=== PATIENT | female | born 1955 | race Caucasian/White ===

== ENCOUNTER 2020-09-11 07:30 | Outpatient (REF) | payer OTHER, SELFPAY ==
[2020-09-11 11:15] LABS: Hematocrit 39.5 % (37-47); Hemoglobin 12.6 g/dl (12.0-16.0); Mean Corpuscular HGB Conc 31.9 g/dl (31.0-35.0); Mean Corpuscular Hemoglobin 27.8 pg (27.0-33.0); Mean Corpuscular Volume 87.2 fL (80-98); Mean Platelet Volume 11.6 fL (9.4-12.3); Platelet Count 249 X10*3/uL (160-400); Red Blood Count 4.53 X10*6/uL (4.20-5.50); Red Cell Distribution Width 13.6 % (11.0-16.0); White Blood Count 5.7 X10*3/uL (4.8-10.8)
[2020-09-11 11:30] LABS: Alanine Aminotransferase 19 U/L (0-31); Albumin Level 4.2 g/dL (3.5-5.0); Alkaline Phosphatase 76 U/L (39-117); Anion Gap 10 (12-20); Aspartate Amino Transferase 22 U/L (5-31); Bilirubin Direct 0.3 mg/dL (0.0-0.5); Bilirubin Total 0.5 mg/dL (0.0-1.0); Blood Urea Nitrogen 17 mg/dL (9-16); Calcium 8.9 mg/dL (8.4-10.2); Carbon Dioxide 29 mmol/L (22-29); Chloride 107 mmol/L (96-108); Cholesterol 165 mg/dL; Estimated Glomerular Filt Rate > 60; Glucose Fasting 110 mg/dL (60-99); HDL Cholesterol 70 mg/dL; LDL Cholesterol Calculated 84 mg/dl; Potassium 4.7 mmol/L (3.3-5.1); Sodium 141 mmol/L (135-145); Total Protein 6.4 g/dL (6.5-8.0); Triglycerides 59 mg/dL
[2020-09-11 11:54] LABS: TSH reflex Free T4 2.92 uIU/mL (0.32-4.0)
== END 2020-09-11 07:31 | disposition home or self-care (01) ==
LOC: HO.WFDLDS 07:30
PROVIDERS: Visit Provider Hospitalist
DX: Z00.00 Encounter for general adult medical examination without abnormal findings (principal); Z13.220 Encounter for screening for lipoid disorders; Z13.29 Encounter for screening for other suspected endocrine disorder
CPT/HCPCS: 36415; 80048; 80061; 80076; 84443; 85027

== ENCOUNTER 2021-10-21 08:37 | Outpatient (REF) | payer OTHER, SELFPAY ==
[2021-10-21 11:37] LABS: Hematocrit 44.1 % (37.0-47.0); Hemoglobin 13.9 g/dl (12.0-16.0); Mean Corpuscular HGB Conc 31.5 g/dl (31.0-35.0); Mean Corpuscular Hemoglobin 28.1 pg (27.0-33.0); Mean Corpuscular Volume 89.1 fL (80.0-98.0); Mean Platelet Volume 11.6 fL (9.4-12.3); Platelet Count 267 X10*3/uL (160-400); Red Blood Count 4.95 X10*6/uL (4.20-5.50); Red Cell Distribution Width 13.2 % (11.0-16.0); White Blood Count 5.1 X10*3/uL (4.8-10.8)
[2021-10-21 11:54] LABS: Alanine Aminotransferase 22 U/L (0-31); Albumin Level 4.2 g/dL (3.5-5.0); Alkaline Phosphatase 66 U/L (39-117); Anion Gap 10 (12-20); Aspartate Amino Transferase 29 U/L (5-31); Blood Urea Nitrogen 18 mg/dL (9-16); Calcium 9.4 mg/dL (8.4-10.2); Carbon Dioxide 27 mmol/L (22-29); Chloride 108 mmol/L (96-108); Cholesterol 191 mg/dL; Estimated Glomerular Filt Rate > 60; Glucose Fasting 103 mg/dL (60-99); HDL Cholesterol 62 mg/dL; LDL Cholesterol Calculated 116 mg/dl; Potassium 4.2 mmol/L (3.3-5.1); Sodium 141 mmol/L (135-145); Total Protein 6.7 g/dL (6.5-8.0); Triglycerides 65 mg/dL
[2021-10-21 12:19] LABS: TSH reflex Free T4 4.59 uIU/mL (0.32-4.0)
[2021-10-21 13:17] LABS: Free T4 (Free Thyroxine) 1.14 ng/dL (0.71-1.85)
== END 2021-10-21 08:38 | disposition home or self-care (01) ==
LOC: HO.WFDLDS 08:37
PROVIDERS: Visit Provider Hospitalist
DX: Z00.00 Encounter for general adult medical examination without abnormal findings (principal)
CPT/HCPCS: 36415; 80053; 80061; 84439; 84443; 85027

== ENCOUNTER 2022-10-21 11:54 | Outpatient (REF) | payer OTHER, SELFPAY ==
--- NOTE | ~2022-10-21 | MM_ITS ---
EXAMINATION: MM SCREENING DIGITAL BREAST TOMOSYNTHESIS, BILATERAL CLINICAL INFORMATION: Due for yearly. Prior mammography 2018. At time of appointment, patient notes left nipple retraction for approximately 1 year. Exam performed as screening. Patient unable to stay for additional diagnostic evaluation. The lifetime risk of breast cancer based on the Tyrer-Cuzick Model is 9%. COMPARISON: Mammography: 08/18/2017, 10/14/2016, 03/03/2016, 02/25/2016. Ultrasound right breast 03/03/2016. TECHNIQUE: Digital breast tomosynthesis is performed in both the craniocaudal and mediolateral oblique views along with computer-aided detection (CAD). Synthesized 2D images are generated from the tomosynthesis. Case discussed with electrophysiology technologist. FINDINGS: There are scattered areas of fibroglandular density (ACR BI-RADS breast composition Category b). Parenchymal pattern is similar to prior exam. There is no interval mass or architectural abnormality or abnormal calcifications. There is no skin thickening or coarsening of the stromal markings. The axilla are unremarkable. The left nipple retraction noted in the clinical history is not appreciated. Patient will be recalled for additional evaluation. MM/MM tomosynthesis screening BI IMPRESSION: -No mammographic evidence of malignancy. ASSESSMENT: BI-RADS 0: Incomplete - Need Additional Imaging Evaluation RECOMMENDATION: 1. Additional views of the left breast (spot CC nipple in profile, ML nipple in profile). 2. Targeted ultrasound if warranted after review of the additional views. 3. Radiology department staff will contact the patient for additional imaging. This patient's information was entered into a reminder system with a target due date for their next mammogram.
== END 2022-10-21 11:55 | disposition home or self-care (01) ==
LOC: HO.MAMMO 11:54
PROVIDERS: PCP Hospitalist; Visit Provider Hospitalist
DX: Z12.31 Encounter for screening mammogram for malignant neoplasm of breast (principal)
CPT/HCPCS: 77063; 77067

== ENCOUNTER 2022-11-24 14:17 | Outpatient (REF) | payer SELFPAY ==
--- NOTE | ~2022-11-24 | MM_ITS ---
EXAMINATION: MM DIAGNOSTIC DIGITAL BREAST TOMOSYNTHESIS, LEFT CLINICAL INFORMATION: At time of screening appointment patient noted intermittent left nipple retraction for 1 year. No discharge or palpable mass. COMPARISON: Multiple prior exams including most recent 10/21/2022. TECHNIQUE: Digital breast tomosynthesis is performed. 2D images are generated from the tomosynthesis. The following views are obtained: Spot CC nipple in profile, spot ML nipple in profile. FINDINGS: There are scattered areas of fibroglandular density (ACR BI-RADS breast composition Category b). The additional views show normal skin contours with no nipple retraction, skin thickening, or architectural abnormality. No interval duct ectasia or mass or developing density. Clinical inspection shows no abnormality anterior left breast. Results are discussed with the patient at time of visit. MM/MM tomosynthesis added views L IMPRESSION: -No mammographic evidence of malignancy. -No significant changes from prior studies. ASSESSMENT: BI-RADS 1: Negative RECOMMENDATION: 1. Patient should be managed based on the clinical impression. If clinically indicated, further evaluation may be considered with surgical consult. Decision to proceed with biopsy should be based on clinical grounds and degree of clinical concern. 2. Otherwise, routine annual screening mammography. This patient's information was entered into a reminder system with a target due date for their next mammogram.
== END 2022-11-24 14:18 | disposition home or self-care (01) ==
LOC: HO.MAMMO 14:17
PROVIDERS: PCP Hospitalist; Visit Provider Hospitalist
DX: N64.53 Retraction of nipple (principal)
CPT/HCPCS: 77061; 77065

== ENCOUNTER 2023-03-15 08:44 | Day surgery (SDC) | payer MEDICARE, SELFPAY ==
--- NOTE | 2023-03-14 10:24 | HO.ANESPROP2 ---
Documented by User: Liyah Longo NP 03/14/23 10:25 HPI - Anesthesia Eval Consult details Narrative: 67yo F for Colonoscopy PMFSH Active Problems Active Problems: All Active Problems (Updated 10/20/22 @ 09:40 by Marie Mehta NP) Other screening mammogram (Acute) Screening for blood or protein in urine (Acute) BMI 31.0-31.9,adult (Acute) Callous (Acute) Normal physical exam (Acute) Pain in both feet (Acute) Well adult exam (Acute) High cholesterol (Acute) Hypothyroidism (acquired) (Acute) Past Medical History Medical History (Updated 03/14/23 @ 10:25 by Liyah Longo NP) High cholesterol Hypothyroidism (acquired) Family History Family History Father No problems noted. Mother No problems noted. Surgical History Surgical History History of rectal surgery Social History Social History Housing: House Alcohol intake: current Alcohol intake frequency: a few times a month Patient Tobacco Use Status: Former Tobacco user service: No Current occupational status: employed Current occupation: teacher Meds Allergies Allergy/AdvReac Type Severity Reaction Status Date / Time Penicillins Allergy Mild RASH Verified 03/15/23 09:27 Sulfa (Sulfonamide Allergy Mild RASH/SWELLI Verified 03/15/23 09:27 Antibiotics) NG PLASTIC TAPE Allergy Unknown UNKNOWN Uncoded 03/15/23 09:27 Exam Exam Date and Time: March 14, 2023 1024 Assessment and Plan Assessment Anesthesia Assessment: Chart Reviewed Documented by User: Ginger Aguirre MD 03/15/23 10:03 PMFSH Active Problems Active Problems: All Active Problems (Updated 03/15/23 @ 08:20) Other screening mammogram (Acute) Screening for blood or protein in urine (Acute) BMI 31.0-31.9,adult (Acute) Callous (Acute) Normal physical exam (Acute) Pain in both feet (Acute) Well adult exam (Acute) High cholesterol (Acute) Hypothyroidism (acquired) (Acute) Past Medical History Medical History (Updated 03/14/23 @ 10:25 by Liyah Longo NP) High cholesterol Hypothyroidism (acquired) Family History Family History Father No problems noted. Mother No problems noted. Family history of problems with anesthesia: No Surgical History Surgical History History of rectal surgery History of Problems with Anesthesia: No Social History Social History Housing: House Alcohol intake: current Alcohol intake frequency: a few times a month Patient Tobacco Use Status: Former Tobacco user service: No Current occupational status: employed Current occupation: teacher Meds Allergies Allergy/AdvReac Type Severity Reaction Status Date / Time Penicillins Allergy Mild RASH Verified 03/15/23 09:27 Sulfa (Sulfonamide Allergy Mild RASH/SWELLI Verified 03/15/23 09:27 Antibiotics) NG PLASTIC TAPE Allergy Unknown UNKNOWN Uncoded 03/15/23 09:27 Exam Height,Weight and Vital Signs: Height 5 ft 4 in Weight 72.575 kg Vital Signs Temp Pulse Resp BP Pulse Ox O2 Del Method 97.9 F 70 18 126/69 96 Room Air 03/15/23 09:25 03/15/23 09:25 03/15/23 09:25 03/15/23 09:25 03/15/23 09:25 03/15/23 09:25 Airway Mallampati Class: II TM Dist: >3cm Neck ROM: Full Loose/Missing/Broken Teeth: No (Denies broken, loose, missing teeth) Heart: RRR Lungs: CTAB Assessment and Plan Assessment Anesthesia Assessment: Anesthesia Plan Discussed Final Anesthetic Review Family History of Problems with Anesthesia: No History of Problems with Anesthesia: No NPO: Yes ASA Class: II Final Preanesthetic Review: No Changes in Pt Med Stat, Meds/Allgs Chart Reviewed, Consent Obtained/Reviewed and Anes Risks/Benef Reviewed Patient Risk: Low Procedure Risk: Low Assessment/Block/Sedation in SS: Assess/Block/Sedation-SS Anesthetic Plan Anesthetic Plan: MAC: Disposition: Standard PACU
--- NOTE | 2023-03-15 09:04 | P.HPSUR_ITS ---
Pre-Procedural Eval Section A Date of Service: 03/15/23 Section B Chief Complaint: colon cancer surveillance Details of Present Illness: crc in secodn degree relatives aged 90 Relevant Family History (Specify if Yes): Yes Relevant Social History: None Present Medications: see Short Stay Collaborative assessment Medical History: Significant History (High cholesterol Hypothyroidism (acquired), colon cancer ) History of Previous Operations: Relevant previous surgery/procedure and date(s) (rectal surgery ) Allergies: Allergies Allergy/AdvReac Type Severity Reaction Status Date / Time Penicillins Allergy Mild RASH Verified 10/20/22 09:08 Sulfa (Sulfonamide Allergy Mild RASH/SWELLI Verified 10/20/22 09:08 Antibiotics) NG PLASTIC TAPE Allergy Unknown UNKNOWN Uncoded 10/20/22 09:08 Review of Systems Sugical H&P ROS: Negative: Constitution, Cardiovascular, Respiratory, Neurological, Psychiatric, Hem-Onc, Allergic/Immunologic, Gastrointestinal, Genitourinary, Musculoskeletal, Integumentary, Endocrine and Eyes/Ears/Nose/Thr oat Exam Surgical H&P Exam: Normal: HEENT, Normal: Heart, Normal: Lungs, Normal: Extremities, Normal: Abdomen, Normal: Skin and Normal: Neurological Plan Diagnosis/Plan: Unchanged I have reviewed the history and physical and performed a pertinent physical examination on my patient. No changes have occurred unless specified. Time Spent With Patient Time: Total time managing care of this patient today ____ minutes.
[2023-03-15 09:05] VITALS: BMI 27.5
[2023-03-15 09:25] VITALS: BP 126/69; PULSE 70; RESP 18; TEMP 36.6; O2SAT 96
[2023-03-15] MEDS: Lactated Ringers 1,000 ML 100 ML IVCONT (09:26)
--- NOTE | 2023-03-15 09:28 | P.OP_ITS ---
Operative Note Operative Note Date of Service: 03/15/23 Narrative: Operative Information Procedure Description: Colonoscopy Indication: Hx of colon cancer, here for surveillance --hx of partial colon resection Anesthesia: MAC COLONOSCOPY Instrument: Olympus variable stiffness pediatric scope 190L Colonoscopy Monitoring: Vital signs and clinical assessment, continuous EKG monitoring, Pulse oximetry, Carbon Dioxide monitoring and blood pressure monitoring were done throughout the procedure. Colon withdrawal time was 8 minutes. Procedure: The patient was placed in the left lateral decubitis position and pre-procedure medications were administered. After a digital rectal examination of the ano-rectum, the video colonoscope was inserted into the rectum and advanced through the colon to the cecum/TI. The colonoscope was slowly withdrawn in a retrograde panoramic fashion and the colon mucosa was carefully examined including a retroflexed view of the rectum. Findings and interventions are described below. Procedure Difficulty: easy Findings: Terminal Ileum-normal Cecum:normal Ascending Colon: normal, few scars noted suspected from prior polyp resection Transverse Colon -normal Descending Colon:normal Sigmoid Colon: surgical anastomosis noted at 10 cm from anal verge Rectum: Retroflexion with small internal hemorrhoids, grade I Anorectum - normal Colon preparation: [place] Bowel Preparation Scale Right colon; 3 Transverse colon: 2 Left colon; 2 (0 = Unprepared colon segment with mucosa not seen due to solid stool that cannot be cleared. 1 = Portion of mucosa of the colon segment seen, but other areas of the colon segment not well seen due to staining, residual stool and/or opaque liquid. 2 = Minor amount of residual staining, small fragments of stool and/or opaque liquid, but mucosa of colon segment seen well. 3 = Entire mucosa of colon segment seen well with no residual staining, small fragments of stool or opaque liquid) Impression and Post Procedure Diagnosis: surgical changes internal hemorrhoids Plan: High fiber diet leaflet Avoid straining at stool, epsom salts and sitz bath, anusol supps or cream Repeat Colonoscopy in 5 years due to hx of colon cancer or earlier if clinically indicated Above findings were reviewed with the patient and relevant handouts were provided if indicated.
[2023-03-15 09:56] VITALS: BP 110/56; PULSE 80; RESP 18; TEMP 36.1; O2SAT 96
[2023-03-15 10:11] VITALS: BP 132/73; PULSE 66; RESP 15; TEMP 36.1; O2SAT 98
== END 2023-03-15 11:01 | disposition home or self-care (01) ==
PROVIDERS: PCP Family Medicine; Visit Provider Internal Medicine Gastroenterology
PROC: 0DJD8ZZ Inspection of Lower Intestinal Tract, Via Natural or Artificial Opening Endoscopic (ICD-10-PCS; CPT 45378; principal; 2023-03-15 10:20)
DX: Z12.11 Encounter for screening for malignant neoplasm of colon (principal); Z85.038 Personal history of other malignant neoplasm of large intestine; Z98.0 Intestinal bypass and anastomosis status; Z90.49 Acquired absence of other specified parts of digestive tract; K64.0 First degree hemorrhoids; E78.00 Pure hypercholesterolemia, unspecified; E03.9 Hypothyroidism, unspecified; Z79.899 Other long term (current) drug therapy; Z88.0 Allergy status to penicillin; Z88.2 Allergy status to sulfonamides; L23.1 Allergic contact dermatitis due to adhesives; Z87.891 Personal history of nicotine dependence
CPT/HCPCS: G0105

== ENCOUNTER → 2023-03-15 08:44 | Outpatient (BNV) | payer MEDICARE, SELFPAY | PROVIDERS: PCP Family Medicine; Visit Provider Internal Medicine Gastroenterology | DX: Z12.11 Encounter for screening for malignant neoplasm of colon (principal); Z80.0 Family history of malignant neoplasm of digestive organs; K64.0 First degree hemorrhoids | CPT/HCPCS: G0105 ==

== ENCOUNTER 2023-06-08 12:43 | Outpatient (AMB) | payer MEDICARE, SELFPAY ==
--- NOTE | 2023-06-08 12:55 | MHC.PC.OV ---
Vital Signs 06/08/23 12:56 Height 5 ft 4 in Weight 166 lb 8 oz BMI 28.6 BP 112/58 L Blood Pressure Location Lt brachial Position Sitting Respiration 13 Pulse 92 Pulse Source Pulse Oximeter Pulse Oximetry (%) 94 Oxygen Delivery Method Room Air Intake Visit Reasons: 8M fu htn and hypothyroidism/tx SV, see comment Allergies Penicillins Allergy (Mild, Verified 03/15/23 09:27) RASH Sulfa (Sulfonamide Antibiotics) Allergy (Mild, Verified 03/15/23 09:27) RASH/SWELLING PLASTIC TAPE Allergy (Unknown, Uncoded 03/15/23 09:27) UNKNOWN Tobacco use date assessed: 06/08/23 Fall risk assessment: No Falls in past year Last assessed Fall Risk: 06/08/23 Dental Screening Dental Screen Date: 06/08/23 Did you have a dental visit in the last 12 months?: Yes Did you have a dental problem in the last 6 months where you did not have access to dental care?: No Was dental information given to patient?: Patient has dentist HPI 8M fu htn and hypothyroidism/tx SV, see comment HPI Details Transfer of Care Prior PCP:?SV Last office visit/CPE:??October?2022 PMHx: Hypothyroidism, HLD. SurgHx: Partial colectomy. FHx: Mom: CAD & NM in her 60s. SocHx: Quit cigs in her 30s. EtOH Occassional 1-2 dr. NORRIS Medical History High cholesterol Hypothyroidism (acquired) Surgical History History of rectal surgery Family History Father No problems noted. Mother No problems noted. Social History (Updated 06/08/23 @ 13:03 by Mary Jo Morris CMA) Household Members: None Housing: House Alcohol intake: current Alcohol intake frequency: holidays/special occasions only Patient Tobacco Use Status: Former Tobacco user Cigarette Packs Per Day: 1 Cigarettes Per Day: 20 Years Smoked: 20 e-Cigarette/Vaping Use: Never Used Second Hand Smoke Exposure: No service: No Current occupational status: employed Current occupation: teacher Sexual orientation: Unable to collect Gender identity: Unable to collect Cognitive needs: No Hearing needs: Yes (hearing in left ear) Vision needs: Yes (wears glasses) Questionnaire PHQ-9 Over the last 2 weeks, how often have you been bothered by any of the following problems? 1. Little interest or pleasure in doing things: not at all 2. Feeling down, depressed, or hopeless: not at all 3. Trouble falling or staying asleep, or sleeping too much: not at all 4. Feeling tired or having little energy: not at all 5. Poor appetite or overeating: not at all 6. Feeling bad about yourself - or that you are a failure or have let yourself or your family down: not at all 7. Trouble concentrating on things, such as reading the newspaper or watching television: not at all 8. Moving or speaking so slowly that other people could have noticed. Or the opposite - being so fidgety or restless that you have been moving around a lot more than usual: not at all 9. Thoughts that you would be better off or of hurting yourself in some way: not at all Total score: 0 Depression Screening Interpretation: Negative Depression Screening Done: Yes [id number] - PHQ-9 Billing: Yes Source: Developed by Drs. Ashok Chen, Jennifer Haas, Khoi Juarez and colleagues, with an educational mia from [employer] Thrive Questionnaire Date Thrive assessed: 06/08/23 I am a: Patient What is your living situation today?: I have a steady place to live Within the past 12 months, did the food you bought not last and you didn't have the money to get more?: Never true Within the past 12 months, did you worry whether your food would run out before you got money to buy more?: Never true Do you have trouble paying for medicines?: No Do you have trouble getting transportation to medical appointments?: No Do you have trouble paying your heating and electricity bill?: No Do you have trouble taking care of your child, family member or friend?: No Do you have trouble with day-to-day activities such as bathing, preparing meals, shopping, managing finances, etc.?: No Are you currently unemployed and looking for a job?: No Are you interested in more education?: No Please select the resources that you would like help with: None Currently or been in a relationship where the following occur: no concerns reported AUDIT C Alcohol Use Questionnaire (AUDIT-C) 1. How often do you have a drink containing alcohol?: Monthly or less 2. How many drinks containing alcohol do you have on a typical day when you are drinking?: 1 or 2 3. How often do you have six or more drinks on one occasion?: Never Total Score: 1 BEBA-7 AMB Questionnaire BEBA-7 Date BEBA - 7 assessed: 06/08/23 Feeling nervous, anxious, or on edge: 0 = Not at all Not being able to stop or control worryin = Not at all Worrying too much about different things: 0 = Not at all Trouble relaxin = Not at all Being so restless that it is hard to sit still: 0 = Not at all Becoming easily annoyed or irritable: 0 = Not at all Feeling afraid as if something awful might happen: 0 = Not at all Total BEBA-7 score (0-4 normal; 5-9 mild; 10-14 moderate; 15-21 severe): 0 Source: Developed by Drs. Ashok Chen, Jennifer Haas, Khoi Juarez and colleagues, with an educational mia from [employer] BEBA-7 Assessment Billing BEBA-7 Assessment Tool: BEBA-7 Assessment 97007 Review of Systems Const Denies chills, Denies fatigue, Denies fever(s), Denies headache(s) and Denies weakness ENT Denies dizziness and Denies headache(s) Card Denies chest pain, Denies lightheadedness, Denies dyspnea and Denies other (Palpitations) Resp Denies cough, Denies dyspnea, Denies wheezing and Denies other ( shortness of breath) Musc Denies numbness and Denies tingling Neuro Denies dizziness, Denies headache(s), Denies numbness, Denies tingling, Denies paresthesias and Denies weakness Psych Denies anxiety and Denies depression Endo Denies fatigue Aller/Immun Denies wheezing Physical exam (Primary Care) Vital Signs: Last Vital Signs Pulse 92 06/08/23 12:56 Resp 13 06/08/23 12:56 BP 112/58 L 06/08/23 12:56 Pulse Ox 94 06/08/23 12:56 Oxygen Delivery Method Room Air 06/08/23 12:56 BMI result Body Mass Index 28.6 Tobacco/Smoking Status: Tobacco use Status Tobacco use date assessed 06/08/23 06/08/23 13:02 Patient Tobacco Use Status Former Tobacco user 06/08/23 13:03 e-Cigarette/Vaping Use Never Used 06/08/23 13:03 PHQ-9: PHQ-9 Score PHQ-9: Total score 0 06/08/23 13:19 Depression Screening Interpretation: Negative Thrive Assessment: Date of Thrive Assessment Date Thrive assessed 06/08/23 06/08/23 13:07 Currently or been in a relationship where the following occur: no concerns reported Const General: no acute distress and well developed Nutritional Appearance: well nourished Orientation/consciousness: patient oriented x3 HENMT Head: Yes normocephalic and Yes atraumatic Eyes General: appearance normal, both eyes and all related structures Pupils: Equal, round and reactive pupils present EOM: EOMs intact bilaterally Resp Effort & Inspection: normal respiratory effort Auscultation: clear to auscultation bilaterally Cardio Rate: regular rate Rhythm: regular rhythm Heart sounds: S1 normal heart sound present, S2 normal heart sound present, no gallops, no murmurs and no rubs Neuro General: patient oriented x3 and gait normal Cranial nerves: Yes Equal, round and reactive pupils present Psych Affect: normal affect Assessment and Plan Assessment & Plan (1) Hypothyroidism (acquired): Code(s): E03.9 - Hypothyroidism, unspecified Plan: Taking?levothyroxine?as?prescribed Due?to?recheck?thyroid?hormone?levels-ordered (2) High cholesterol: Code(s): E78.00 - Pure hypercholesterolemia, unspecified Plan: Taking?pravastatin?as?prescribed Check?lipid (3) History of colorectal cancer: Code(s): Z85.048 - Personal history of other malignant neoplasm of rectum, rectosigmoid junction, and anus Plan: Followed?by?[facility]?gastroenterology Will?request?results?of?recent?colonoscopy (4) Left ankle swelling: Code(s): M25.472 - Effusion, left ankle Plan: Mild?venous?insufficiency Elevate?legs Avoid?salt/sodium Use?compression?stocking (5) Venous insufficiency: Code(s): I87.2 - Venous insufficiency (chronic) (peripheral) Plan: As?above Orders: Orders Free T4 (Free Thyroxine) Today E03.9 - Hypothyroidism, unspecified Triiodothyronine T3 Total Today E03.9 - Hypothyroidism, unspecified Comprehensive [place]. Panel Fast Today E78.00 - Pure hypercholesterolemia, unspecified, Z00.00 - Encounter for general adult medical examination without abnormal findings Lipid Panel Today E78.00 - Pure hypercholesterolemia, unspecified, Z00.00 - Encounter for general adult medical examination without abnormal findings Microalbumin, Random (w Creat) Today E78.00 - Pure hypercholesterolemia, unspecified, I10 - Essential (primary) hypertension UA and rflx microscopic Today E03.9 - Hypothyroidism, unspecified, Z00.00 - Encounter for general adult medical examination without abnormal findings Thyroid Stimulating Hormone Today E03.9 - Hypothyroidism, unspecified Coding Level of Care Code Est Pt Level 4 (86349) Diagnoses Hypothyroidism (acquired) E03.9 High cholesterol E78.00 History of colorectal cancer Z85.048 Left ankle swelling M25.472 Venous insufficiency I87.2 Additional Codes BEBA-7 Assessment Billing - BEBA-7 Assessment Tool: BEBA-7 Assessment 93901 ([id number])
[2023-06-08 12:56] VITALS: BP 112/58; PULSE 92; RESP 13; O2SAT 94; BMI 28.6
== END 2023-06-08 13:38 | disposition home or self-care (01) ==
PROVIDERS: PCP Family Medicine; Visit Provider Family Medicine
DX: E03.9 Hypothyroidism, unspecified (principal); E78.00 Pure hypercholesterolemia, unspecified; Z85.048 Personal history of other malignant neoplasm of rectum, rectosigmoid junction, and anus; M25.472 Effusion, left ankle; I87.2 Venous insufficiency (chronic) (peripheral)
CPT/HCPCS: 99214

== ENCOUNTER 2023-10-17 08:00 | Outpatient (REF) | payer MEDICARE, SELFPAY ==
[2023-10-17 11:59] LABS: Appearance Urine Clear; Color Urine Yellow; Glucose Urine UA Negative (Negative); Leukocyte Esterase Urine Small (1+) (Negative); Nitrite Urine Negative (Negative); PH 5.5 (5.0-9.0); Specific Gravity - Urine 1.015 (1.005-1.025); UMIC TRIGGER UA YES; Urine Blood Negative (Negative); Urine Ketones Negative (Negative); Urine Protein Negative (Neg-Trace)
[2023-10-17 12:30] LABS: Bacteria Urine None Seen (None Seen); Hyaline Casts Urine 0-2 /LPF (0-2); RBC Urine 0-2 /HPF (0-2); Squamous Epithelial Cell Urine 0-2 /HPF (0-2); WBC Urine 0-5 /HPF (0-5)
[2023-10-17 13:52] LABS: Creatinine Urine 116.76 mg/dL; Microalbum/Creatinine Ratio Ur 24.8 ug/mg cr (<30)
[2023-10-17 17:42] LABS: Alanine Aminotransferase 23 U/L (0-31); Albumin Level 4.3 g/dL (3.5-5.0); Alkaline Phosphatase 61 U/L (39-117); Anion Gap 12 (12-20); Aspartate Amino Transferase 25 U/L (5-31); Bilirubin Total 0.8 mg/dL (0.0-1.0); Blood Urea Nitrogen 19 mg/dL (9-16); Calcium 9.1 mg/dL (8.4-10.2); Carbon Dioxide 27 mmol/L (22-29); Chloride 107 mmol/L (96-108); Cholesterol 185 mg/dL (<200); Estimated Glomerular Filt Rate > 60; Free T4 (Free Thyroxine) 1.15 ng/dL (0.71-1.85); Glucose Fasting 88 mg/dL (60-99); HDL Cholesterol 67 mg/dL (>40); LDL Cholesterol Calculated 104 mg/dL (<100); Potassium 3.9 mmol/L (3.3-5.1); Sodium 142 mmol/L (135-145); Thyroid Stimulating Hormone 4.52 uIU/mL (0.32-4.0); Total Protein 6.9 g/dL (6.5-8.0); Triglycerides 71 mg/dL (<150)
[2023-10-18 06:48] LABS: Triiodothyronine T3 Total 78 ng/dL (76-181)
== END 2023-10-17 08:01 | disposition home or self-care (01) ==
LOC: HO.WFDLDS 08:00
PROVIDERS: Visit Provider Family Medicine
DX: Z00.00 Encounter for general adult medical examination without abnormal findings (principal); E03.9 Hypothyroidism, unspecified; E78.00 Pure hypercholesterolemia, unspecified; I10 Essential (primary) hypertension
CPT/HCPCS: 36415; 80053; 80061; 81001; 81003; 82043; 82570; 84439; 84443; 84480

== ENCOUNTER 2023-10-24 15:44 | Outpatient (AMB) | payer MEDICARE, SELFPAY ==
[2023-10-24 15:58] VITALS: BP 120/72; PULSE 70; O2SAT 98; BMI 28.5
--- NOTE | 2023-10-24 15:58 | A.OFFPC_ITS ---
Vital Signs 10/24/23 15:58 Height 5 ft 4 in Weight 166 lb 2 oz BMI 28.5 BP 120/72 Blood Pressure Location Lt brachial Position Sitting Pulse 70 Pulse Source Pulse Oximeter Pulse Oximetry (%) 98 Oxygen Delivery Method Room Air Intake Visit Reasons: Extended exam with f/u labs and health maintenance Intake Note: Patient is here for her extended exam today with follow up on labs. Allergies Penicillins Allergy (Mild, Verified 10/24/23 16:00) RASH Sulfa (Sulfonamide Antibiotics) Allergy (Mild, Verified 10/24/23 16:00) RASH/SWELLING PLASTIC TAPE Allergy (Unknown, Uncoded 10/24/23 16:00) UNKNOWN Medication List - Last Reconciled 10/24/23 by Tk Tatum MD levothyroxine 50 mcg PO DAILY pravastatin 20 mg PO BEDTIME Tobacco use date assessed: 10/24/23 Fall risk assessment: No Falls in past year Last assessed Fall Risk: 10/24/23 Dental Screening Dental Screen Date: 10/24/23 Did you have a dental visit in the last 12 months?: Yes Did you have a dental problem in the last 6 months where you did not have access to dental care?: No Was dental information given to patient?: Patient has dentist HPI Extended exam with f/u labs and health maintenance HPI Details 67 y/o female presents for an extended e xam with f/u labs and health maintenance. Labs were drawn 10/17/23. Reviewed labs with pt. Triglycerides 71. TC 185. LDL 104. HDL 67. She is on pravastatin 20mg. Ongoing elevated TSH at 4.52. She is on levothyroxine 50 mcg daily. Fasting blood sugar 88 - had been elevated before in the past. [facility] Medical History (Updated 10/24/23 @ 16:41 by Hima Rsoario) High cholesterol Hypothyroidism (acquired) Surgical History History of rectal surgery Family History Father No problems noted. Mother No problems noted. Social History (Updated 06/08/23 @ 13:03 by Mary Jo Morris CMA) Household Members: None Housing: House Alcohol intake: current Alcohol intake frequency: holidays/special occasions only Patient Tobacco Use Status: Former Tobacco user Cigarette Packs Per Day: 1 Cigarettes Per Day: 20 Years Smoked: 20 e-Cigarette/Vaping Use: Never Used Second Hand Smoke Exposure: No service: No Current occupational status: employed Current occupation: teacher Sexual orientation: Unable to collect Gender identity: Unable to collect Cognitive needs: No Hearing needs: Yes (hearing in left ear) Vision needs: Yes (wears glasses) Questionnaire PHQ-9 Over the last 2 weeks, how often have you been bothered by any of the following problems? 1. Little interest or pleasure in doing things: not at all 2. Feeling down, depressed, or hopeless: not at all 3. Trouble falling or staying asleep, or sleeping too much: not at all 4. Feeling tired or having little energy: not at all 5. Poor appetite or overeating: not at all 6. Feeling bad about yourself - or that you are a failure or have let yourself or your family down: not at all 7. Trouble concentrating on things, such as reading the newspaper or watching television: not at all 8. Moving or speaking so slowly that other people could have noticed. Or the opposite - being so fidgety or restless that you have been moving around a lot more than usual: not at all 9. Thoughts that you would be better off or of hurting yourself in some way: not at all Total score: 0 Depression Screening Interpretation: Negative Depression Screening Done: Yes 71546 - PHQ-9 Billing: Yes Source: Developed by Drs. Ashok Chen, eJnnifer Haas, Khoi Juarez and colleagues, with an educational mia from [employer]. Thrive Questionnaire Date Thrive assessed: 10/24/23 I am a: Patient What is your living situation today?: I have a steady place to live Within the past 12 months, did the food you bought not last and you didn't have the money to get more?: Never true Within the past 12 months, did you worry whether your food would run out before you got money to buy more?: Never true Do you have trouble paying for medicines?: No Do you have trouble getting transportation to medical appointments?: No Do you have trouble paying your heating and electricity bill?: No Do you have trouble taking care of your child, family member or friend?: No Do you have trouble with day-to-day activities such as bathing, preparing meals, shopping, managing finances, etc.?: No Are you currently unemployed and looking for a job?: No Are you interested in more education?: No THRIVE Score: 0 AUDIT C Alcohol Use Questionnaire (AUDIT-C) 1. How often do you have a drink containing alcohol?: Monthly or less 2. How many drinks containing alcohol do you have on a typical day when you are drinking?: 1 or 2 3. How often do you have six or more drinks on one occasion?: Never Total Score: 1 BEBA-7 AMB Questionnaire BEBA-7 Date BEBA - 7 assessed: 10/24/23 Feeling nervous, anxious, or on edge: 0 = Not at all Not being able to stop or control worryin = Not at all Worrying too much about different things: 0 = Not at all Trouble relaxin = Not at all Being so restless that it is hard to sit still: 0 = Not at all Becoming easily annoyed or irritable: 0 = Not at all Feeling afraid as if something awful might happen: 0 = Not at all Total BEBA-7 score (0-4 normal; 5-9 mild; 10-14 moderate; 15-21 severe): 0 Source: Developed by Drs. Ashok Chen, Jennifer Haas, Khoi Juarez and colleagues, with an educational mia from [employer]. BEBA-7 Assessment Billing BEBA-7 Assessment Tool: BEBA-7 Assessment 99511 Review of Systems Const Denies chills, Denies fatigue, Denies fever(s), Denies headache(s) and Denies weakness Eyes Denies change in vision ENT Denies dizziness, Denies headache(s), Denies hearing loss, Denies nasal congestion, Denies sinus pain, Denies sinus pressure and Denies sore throat Card Denies chest pain, Denies lightheadedness, Denies dyspnea and Denies other (palpitations) Resp Denies cough, Denies dyspnea and Denies wheezing GI Denies abdominal pain, Denies melena, Denies hematochezia, Denies change in bowel habits, Denies dyspepsia and Denies nausea Denies hematuria and Denies dysuria Musc Denies abnormal gait, Denies myalgias, Denies arthralgias, Denies numbness and Denies tingling Skin/Breast Denies rash, Denies unusual bruising and Denies wounds Neuro Denies abnormal gait, Denies dizziness, Denies headache(s), Denies memory loss, Denies numbness, Denies Sensory deficit (Neuro), Denies tingling and Denies weakness Psych Denies anxiety, Denies depression and Denies memory loss Endo Denies cold intolerance, Denies fatigue, Denies heat intolerance, Denies polydipsia and Denies polyuria Bandar/Lymph Denies easy bleeding and Denies easy bruising Aller/Immun Denies wheezing Physical exam (Primary Care) Vital Signs: Last Vital Signs Pulse 70 10/24/23 15:58 BP 120/72 10/24/23 15:58 Pulse Ox 98 10/24/23 15:58 Oxygen Delivery Method Room Air 10/24/23 15:58 BMI result Body Mass Index 28.5 Tobacco/Smoking Status: Tobacco use Status Tobacco use date assessed 10/24/23 10/24/23 16:04 Patient Tobacco Use Status Former Tobacco user 10/24/23 16:04 e-Cigarette/Vaping Use Never Used 10/24/23 16:04 PHQ-9: PHQ-9 Score PHQ-9: Total score 0 10/24/23 16:19 Depression Screening Interpretation: Negative Thrive Assessment: Date of Thrive Assessment Date Thrive assessed 10/24/23 10/24/23 16:06 Const General: no acute distress, well developed, alert and awake Nutritional Appearance: well nourished Orientation/consciousness: patient oriented x3 HENMT Head: Yes normocephalic and Yes atraumatic Ears: hearing grossly normal bilaterally and TM's normal bilaterally General nose exam: Normal external nose present and Normal nares present Mouth: Normal oral and palatal mucosa present and moist mucous membranes Teeth and gingiva: dentition normal Throat: Yes posterior oropharynx normal Eyes General: appearance normal, both eyes and all related structures Pupils: Equal, round and reactive pupils present and Pupil accommodation reflex normal EOM: EOMs intact bilaterally Neck Neck: Yes normal visual inspection, Yes no lymphadenopathy and Yes trachea midline Thyroid: Thyroid normal Carotids: no bruits Lymphatic: no lymphadenopathy noted Chest Chest palpation & inspection: normal inspection of the chest Resp Effort & Inspection: normal respiratory effort Auscultation: clear to auscultation bilaterally Cardio Rate: regular rate Rhythm: regular rhythm Heart sounds: S1 normal heart sound present, S2 normal heart sound present, no gallops, no murmurs and no rubs Bruits: no abdominal aortic bruits and no carotid bruits GI Palpation (GI): No Abdominal aortic bruit present, Soft to palpation, nontender, No hepatosplenomegaly present and No Rebound tenderness present Auscultation: normal bowel sounds General: Yes no CVA tenderness Back/Spine/Pelvis Back: no CVA tenderness Cervical Spine: cervical ROM normal and No Cervical spine tenderness Thoracic/Lumbar Spine: thoraco-lumbar ROM normal, No pain with thoraco-lumbar ROM, No thoracic spinal tenderness and No lumbar spinal tenderness Skin Lesions: no lesions Rashes: no rashes Trauma: no lacerations or abrasions Wounds: no wounds Nails: normal Neuro General: patient oriented x3 Cranial nerves: Yes Equal, round and reactive pupils present Cognition (Neuro): normal cognition Gait exam (Neuro): Normal gait present Motor exam (neuro): 5/5 motor strength present throughout Sensory Exam: No Sensory deficit (Neuro) Deep tendon reflexes (DTR's): Right patellar reflex intensity grade: 2+ and Left patellar reflex intensity grade: 2+ Extrem General: Yes normal to inspection and No edema Psych Appearance: grossly normal Affect: normal affect Attitude: cooperative Thought process: Normal thought process present Assessment and Plan Assessment & Plan (1) Hypothyroidism (acquired): Code(s): E03.9 - Hypothyroidism, unspecified Plan: TSH?elevated?on?levothyroxine?50?mcg?daily Will?increase?levothyroxine?to?75?mcg?daily?and?recheck?in?6-8?weeks. (2) High cholesterol: Code(s): E78.00 - Pure hypercholesterolemia, unspecified Plan: Cholesterol?levels?appear?well?controlled?on?pravastatin?20?mg?daily Continue?current?medication?regimen (3) Breast cancer screening by mammogram: Code(s): Z12.31 - Encounter for screening mammogram for malignant neoplasm of breast Plan: Patient?has?mammogram?scheduled?for?early?May Up-to-date (4) Screening for colon cancer: Code(s): Z12.11 - Encounter for screening for malignant neoplasm of colon Plan: Last?colonoscopy?was?in?March?2022?and?recommended?a?5?year?follow-up She?will?follow-up?in?March?2027 (5) Screening for osteoporosis: Code(s): Z13.820 - Encounter for screening for osteoporosis Plan: Bone?density?ordered (6) Normal physical exam: Code(s): Z00.00 - Encounter for general adult medical examination without abnormal findings Plan: 67-year-old?female?presents?for extended?exam Encouraged?a?healthy?diet?with?active?lifestyle?and?plenty?of?exercise Plan Patient?declines?Pap?smears?as?she?is?67 Orders: Orders Free T4 (Free Thyroxine) Today E03.9 - Hypothyroidism, unspecified Comprehensive Met. Panel Today E03.9 - Hypothyroidism, unspecified XR DEXA axial skeleton Today E03.9 - Hypothyroidism, unspecified, M81.0 - Age- related osteoporosis without current pathological fracture Thyroid Stimulating Hormone Today E03.9 - Hypothyroidism, unspecified Triiodothyronine T3 Total Today E03.9 - Hypothyroidism, unspecified Medications: Changed From levothyroxine 50 mcg PO DAILY 90 tabs 1RF To levothyroxine 75 mcg PO DAILY 90 days 90 tabs 2RF Coding Level of Care Code Est Pt Level 4 (41927) Diagnoses Hypothyroidism (acquired) E03.9 High cholesterol E78.00 Breast cancer screening by mammogram Z12.31 Screening for colon cancer Z12.11 Screening for osteoporosis Z13.820 Normal physical exam Z00.00 Additional Codes BEBA-7 Assessment Billing - BEAB-7 Assessment Tool: BEBA-7 Assessment [id number] ([id number])
== END 2023-10-24 16:38 | disposition home or self-care (01) ==
PROVIDERS: PCP Family Medicine; Visit Provider Family Medicine
DX: E03.9 Hypothyroidism, unspecified (principal); E78.00 Pure hypercholesterolemia, unspecified; Z12.31 Encounter for screening mammogram for malignant neoplasm of breast; Z12.11 Encounter for screening for malignant neoplasm of colon; Z13.820 Encounter for screening for osteoporosis; Z00.00 Encounter for general adult medical examination without abnormal findings
CPT/HCPCS: 99214

== ENCOUNTER → 2023-11-17 14:00 | Outpatient (BNV) | payer MEDICARE, SELFPAY | PROVIDERS: PCP Family Medicine; Visit Provider Radiology Diagnostic Radiology | DX: Z12.31 Encounter for screening mammogram for malignant neoplasm of breast (principal) | CPT/HCPCS: 77063; 77067 ==

== ENCOUNTER 2023-11-17 14:09 | Outpatient (REF) | payer MEDICARE, SELFPAY ==
--- NOTE | ~2023-11-17 | MM_ITS ---
EXAMINATION: BONE DENSITOMETRY CLINICAL INDICATION: Age-related osteoporosis without current pathological fracture. COMPARISON: Baseline BD dated 11/20/2008. TECHNIQUE: Using a [employer] DXA System (software version: 13.1) manufactured by [employer], dual-energy x-ray absorptiometry was performed of the lumbar spine and left hip. The images are of good technical quality. Summary results are attached. FINDINGS: LEFT FEMUR, NECK: Current: BMD 0.848 g/cm2, Z-score 0.0, T-score -1.4, osteopenia. Baseline: BMD 0.878 g/cm2. LEFT FEMUR, TOTAL: Current: BMD 0.773 g/cm2, Z-score -0.8, T-score -1.9, osteopenia, 12.4% decrease from baseline (<5% change is not significant). Baseline: BMD 0.882 g/cm2. AP SPINE L1-L4: Current: BMD 0.888 g/cm2, Z-score -1.1, T-score -2.4, osteopenia, 14.8% decrease from baseline (<5% change is not significant). Baseline: BMD 1.042 g/cm2. IDENTIFIED RISK FACTORS: Family history (parent hip fracture), history of fracture (adult), menopause, secondary osteoporosis (Intestinal or bowel disease). HISTORY OF FRACTURE: Other. MEDICATIONS: Calcium, multivitamin, vitamin D. MM/XR DEXA axial skeleton IMPRESSION: 1. DIAGNOSIS: Osteopenia based on the lowest T-score value of -2.4 in the lumbar spine applying World Health Organization criteria. 2. 10-YEAR FRACTURE RISK PREDICTION, FRAX: Major osteoporotic fracture (clinical spine, forearm, hip or shoulder) 25.8%. Hip fracture 1.7%. 3. Treatment Recommendations: NOF guidelines recommend consideration for treatment in postmenopausal women and men age 50 and older presenting with the following: -A hip or vertebral (clinical or morphometric) fracture. -T-score less than or equal to -2.5 at the femoral neck or spine after appropriate evaluation to exclude secondary causes. -Low bone mass at the hip or spine and a 10-year fracture probability by FRAX of greater than or equal to 3% for hip fracture or greater than or equal to 20% for major osteoporotic fracture based on the [place] adapted WHO algorithm. 4. Other Recommendations: All treatment decisions require clinical judgment and consideration of individual patient factors, including patient preferences, comorbidities, previous drug use, risk factors not captured in the FRAX model (e.g. frailty, falls, vitamin D deficiency, increased bone turnover, interval significant decline in bone density) and possible under or overestimation of fracture risk by FRAX. Additional medical evaluation for secondary cause of low bone mineral density may be appropriate. FUTURE SCAN RECOMMENDATION: People with diagnosed cases of osteoporosis or at high risk for fracture should have regular bone mineral density tests. For patients eligible for Medicare, routine testing is allowed once every 2 years. The testing frequency can be increased to one year for patients who have rapidly progressing disease, those who are receiving or discontinuing medical therapy to restore bone mass, or have additional risk factors.
== END 2023-11-17 14:10 | disposition home or self-care (01) ==
LOC: HO.MAMMO 14:09
PROVIDERS: PCP Family Medicine; Visit Provider Family Medicine
DX: Z12.31 Encounter for screening mammogram for malignant neoplasm of breast (principal); Z13.820 Encounter for screening for osteoporosis; Z78.0 Asymptomatic menopausal state; M81.0 Age-related osteoporosis without current pathological fracture
CPT/HCPCS: 77063; 77067; 77080

== ENCOUNTER 2023-12-13 07:38 | Outpatient (REF) | payer MEDICARE, SELFPAY ==
[2023-12-13 12:07] LABS: Alanine Aminotransferase 28 U/L (0-31); Albumin Level 4.3 g/dL (3.5-5.0); Alkaline Phosphatase 68 U/L (39-117); Anion Gap 10 (12-20); Aspartate Amino Transferase 29 U/L (5-31); Bilirubin Total 0.8 mg/dL (0.0-1.0); Blood Urea Nitrogen 13 mg/dL (9-16); Calcium 9.5 mg/dL (8.4-10.2); Carbon Dioxide 29 mmol/L (22-29); Chloride 106 mmol/L (96-108); Estimated Glomerular Filt Rate > 60; Glucose Random 100 mg/dL (60-115); Potassium 3.9 mmol/L (3.3-5.1); Sodium 141 mmol/L (135-145)
[2023-12-13 12:11] LABS: Free T4 (Free Thyroxine) 1.19 ng/dL (0.71-1.85); Thyroid Stimulating Hormone 2.03 uIU/mL (0.32-4.0)
[2023-12-15 01:03] LABS: Triiodothyronine T3 Total 88 ng/dL (76-181)
== END 2023-12-13 07:39 | disposition home or self-care (01) ==
LOC: HO.WFDLDS 07:38
PROVIDERS: Visit Provider Family Medicine
DX: E03.9 Hypothyroidism, unspecified (principal)
CPT/HCPCS: 36415; 80053; 84439; 84443; 84480

== ENCOUNTER 2023-12-19 08:34 | Outpatient (AMB) | payer MEDICARE, SELFPAY ==
[2023-12-19 08:36] VITALS: BP 122/74; PULSE 86; O2SAT 96; BMI 28.0
--- NOTE | 2023-12-19 08:36 | A.OFFPC_ITS ---
Vital Signs 12/19/23 08:36 Height 5 ft 4 in Weight 163 lb 6 oz BMI 28.0 BP 122/74 Blood Pressure Location Lt brachial Position Sitting Pulse 86 Pulse Source Pulse Oximeter Pulse Oximetry (%) 96 Oxygen Delivery Method Room Air Intake Visit Reasons: f/u hypothyroidism Intake Note: Patient is here to follow hypothyroid and hyperlipidemia today. Allergies Penicillins Allergy (Mild, Verified 12/19/23 08:39) RASH Sulfa (Sulfonamide Antibiotics) Allergy (Mild, Verified 12/19/23 08:39) RASH/SWELLING PLASTIC TAPE Allergy (Unknown, Uncoded 12/19/23 08:39) UNKNOWN Medication List - Last Reconciled 12/19/23 by Tk Tatum MD levothyroxine 75 mcg PO DAILY 90 days pravastatin 20 mg PO BEDTIME Tobacco use date assessed: 12/19/23 Fall risk assessment: No Falls in past year Last assessed Fall Risk: 12/19/23 Dental Screening Dental Screen Date: 10/24/23 HPI f/u hypothyroidism HPI Details 68 y/o female presents to f/u hypothyroi dism. Labs were drawn 12/13/23. Reviewed labs with pt. TSH improved from 4.52 to 2.03. Free T4 1.19. Total T3 88. [facility] Medical History High cholesterol Hypothyroidism (acquired) Surgical History History of rectal surgery Family History (Updated 12/19/23 @ 08:41 by Evelyn Lopez CMA) Father No problems noted. Mother No problems noted. Social History Household Members: None Housing: House Alcohol intake: current Alcohol intake frequency: holidays/special occasions only Patient Tobacco Use Status: Former Tobacco user Cigarette Packs Per Day: 1 Cigarettes Per Day: 20 Years Smoked: 20 e-Cigarette/Vaping Use: Never Used Second Hand Smoke Exposure: No service: No Current occupational status: employed Current occupation: teacher Sexual orientation: Unable to collect Gender identity: Unable to collect Cognitive needs: No Hearing needs: Yes (hearing in left ear) Vision needs: Yes (wears glasses) Questionnaire Thrive Questionnaire Date Thrive assessed: 10/24/23 BEBA-7 AMB Questionnaire BEBA-7 Date BEBA - 7 assessed: 10/24/23 Source: Developed by Drs. Ashok Chen, Jennifer Haas, Khoi Juarez and colleagues, with an educational mia from [employer]. Review of Systems Const Denies chills, Denies fatigue, Denies fever(s), Denies headache(s) and Denies weakness ENT Denies dizziness and Denies headache(s) Card Denies dyspnea Resp Denies cough, Denies dyspnea, Denies wheezing and Denies other (shortness of breath) Musc Denies numbness and Denies tingling Neuro Denies dizziness, Denies headache(s), Denies numbness, Denies tingling and Denies weakness Psych Denies anxiety and Denies depression Endo Denies fatigue Aller/Immun Denies wheezing Physical exam (Primary Care) Vital Signs: Last Vital Signs Pulse 86 12/19/23 08:36 BP 122/74 12/19/23 08:36 Pulse Ox 96 12/19/23 08:36 Oxygen Delivery Method Room Air 12/19/23 08:36 BMI result Body Mass Index 28.0 Tobacco/Smoking Status: Tobacco use Status Tobacco use date assessed 12/19/23 12/19/23 08:44 Patient Tobacco Use Status Former Tobacco user 12/19/23 08:38 e-Cigarette/Vaping Use Never Used 12/19/23 08:38 Thrive Assessment: Date of Thrive Assessment Date Thrive assessed 10/24/23 12/19/23 08:38 Const General: well developed; No acute distress Nutritional Appearance: well nourished Orientation/consciousness: patient oriented x3 [facility] Head: Yes normocephalic and Yes atraumatic Eyes General: appearance normal, both eyes and all related structures Pupils: Equal, round and reactive pupils present EOM: EOMs intact bilaterally Resp Effort & Inspection: normal respiratory effort Neuro General: patient oriented x3 and gait normal Cranial nerves: Yes Equal, round and reactive pupils present Psych Affect: normal affect Assessment and Plan Assessment & Plan (1) Hypothyroidism (acquired): Code(s): E03.9 - Hypothyroidism, unspecified Plan: Thyroid?hormone?levels?now?all?within?normal?range?after?adjusting?levothyroxine Continue?current?medication (2) Osteopenia: Code(s): M85.80 - Other specified disorders of bone density and structure, unspecified site Plan: Bone?density?test?shows?osteopenia Advise?good?sources?of?calcium?and?vitamin-D Advised?weight-bearing?exercise Will?continue?to?screen?every?2?years (3) Breast cancer screening by mammogram: Code(s): Z12.31 - Encounter for screening mammogram for malignant neoplasm of breast Plan: Mammogram?shows?no?evidence?of?malignancy Continue?annual?screening Orders: Orders TSH reflex Free T4 Today E03.9 - Hypothyroidism, unspecified, Z00.00 - Encounter for general adult medical examination without abnormal findings Triiodothyronine T3 Total Today E03.9 - Hypothyroidism, unspecified Vitamin D 25-OH Total Today E55.9 - Vitamin D deficiency, unspecified, M85.80 - Other specified disorders of bone density and structure, unspecified site Free T4 (Free Thyroxine) Today E03.9 - Hypothyroidism, unspecified Comprehensive Met. Panel Today M85.80 - Other specified disorders of bone density and structure, unspecified site Coding Level of Care Code Est Pt Level 3 (99677) Diagnoses Hypothyroidism (acquired) E03.9 Osteopenia M85.80 Breast cancer screening by mammogram Z12.31
== END 2023-12-19 08:58 | disposition home or self-care (01) ==
PROVIDERS: PCP Family Medicine; Visit Provider Family Medicine
DX: E03.9 Hypothyroidism, unspecified (principal); M85.80 Other specified disorders of bone density and structure, unspecified site; Z12.31 Encounter for screening mammogram for malignant neoplasm of breast
CPT/HCPCS: 99213

== ENCOUNTER 2024-05-28 08:22 | Outpatient (REF) | payer MEDICARE, SELFPAY ==
[2024-05-28 11:43] LABS: Appearance Urine Clear; Color Urine Yellow; Glucose Urine UA Negative (Negative); Leukocyte Esterase Urine Negative (Negative); Nitrite Urine Negative (Negative); Specific Gravity - Urine 1.015 (1.005-1.025); Urine Blood Negative (Negative); Urine Ketones Negative (Negative); Urine Protein Negative (Neg-Trace)
[2024-05-28 12:26] LABS: Alanine Aminotransferase 29 U/L (0-31); Albumin Level 4.1 g/dL (3.5-5.0); Alkaline Phosphatase 73 U/L (39-117); Anion Gap 9 (12-20); Aspartate Amino Transferase 32 U/L (5-31); Bilirubin Total 0.9 mg/dL (0.0-1.0); Blood Urea Nitrogen 17 mg/dL (9-16); Calcium 8.8 mg/dL (8.4-10.2); Carbon Dioxide 26 mmol/L (22-29); Chloride 107 mmol/L (96-108); Estimated Glomerular Filt Rate > 60; Glucose Random 105 mg/dL (60-115); Potassium 3.8 mmol/L (3.3-5.1); Sodium 138 mmol/L (135-145); Total Protein 6.6 g/dL (6.5-8.0)
[2024-05-28 12:43] LABS: Free T4 (Free Thyroxine) 1.16 ng/dL (0.71-1.85); TSH reflex Free T4 1.95 uIU/mL (0.32-4.0)
[2024-05-30 02:48] LABS: Triiodothyronine T3 Total 88 ng/dL (76-181)
== END 2024-05-28 08:23 | disposition home or self-care (01) ==
LOC: HO.WFDLDS 08:22
PROVIDERS: Visit Provider Family Medicine
DX: Z00.00 Encounter for general adult medical examination without abnormal findings (principal); M85.80 Other specified disorders of bone density and structure, unspecified site; E03.9 Hypothyroidism, unspecified; E55.9 Vitamin D deficiency, unspecified
CPT/HCPCS: 36415; 80053; 81003; 82306; 84439; 84443; 84480

== ENCOUNTER → 2024-06-03 13:51 | Outpatient (BNVA) | payer MEDICARE, SELFPAY | PROVIDERS: PCP Family Medicine; Visit Provider Family Medicine ==

== ENCOUNTER → 2024-06-03 13:51 | Outpatient (AMB) | payer MEDICARE, SELFPAY ==
--- NOTE | 2024-06-03 13:49 | A.OFFPC_ITS ---
Intake Visit Reasons: 6 month fu lab work Allergies Penicillins Allergy (Mild, Verified 06/03/24 13:50) RASH Sulfa (Sulfonamide Antibiotics) Allergy (Mild, Verified 06/03/24 13:50) RASH/SWELLING PLASTIC TAPE Allergy (Unknown, Uncoded 12/19/23 08:39) UNKNOWN Tobacco use date assessed: 12/19/23 Dental Screening Dental Screen Date: 10/24/23 HPI 6 month fu lab work HPI Details 68 y/[facility] Labs drawn 05/28/24. Reviewed labs with pt. Elevated AST of 32. TSH level 1.95. Free T4 1.16. Total T3 88. She is on levothyroxine 75 mcg daily. Vitamin D 75. [facility] Medical History High cholesterol Hypothyroidism (acquired) Surgical History History of rectal surgery Family History (Updated 12/19/23 @ 08:41 by Evelyn Lopez CMA) Father No problems noted. Mother No problems noted. Social History Household Members: None Housing: House Alcohol intake: current Alcohol intake frequency: holidays/special occasions only Patient Tobacco Use Status: Former Tobacco user Cigarette Packs Per Day: 1 Cigarettes Per Day: 20 Years Smoked: 20 e-Cigarette/Vaping Use: Never Used Second Hand Smoke Exposure: No service: No Current occupational status: employed Current occupation: teacher Sexual orientation: Unable to collect Gender identity: Unable to collect Cognitive needs: No Hearing needs: Yes (hearing in left ear) Vision needs: Yes (wears glasses) Questionnaire Thrive Questionnaire Date Thrive assessed: 10/24/23 AUDIT C Alcohol Use Questionnaire (AUDIT-C) 2. How many drinks containing alcohol do you have on a typical day when you are drinking?: 1 or 2 3. How often do you have six or more drinks on one occasion?: Never Total Score: 0 BEBA-7 AMB Questionnaire BEBA-7 Date BEBA - 7 assessed: 10/24/23 Source: Developed by Drs. Ashok Chen, Jennifer Haas, Khoi Juarez and colleagues, with an educational mia from [employer]. Review of Systems Const Denies chills, Denies fatigue, Denies fever(s), Denies headache(s) and Denies weakness ENT Denies dizziness and Denies headache(s) Card Denies dyspnea Resp Denies cough, Denies dyspnea, Denies wheezing and Denies other (shortness of breath) Musc Denies numbness and Denies tingling Neuro Denies dizziness, Denies headache(s), Denies numbness, Denies tingling and Denies weakness Psych Denies anxiety and Denies depression Endo Denies fatigue Aller/Immun Denies wheezing Physical exam (Primary Care) Tobacco/Smoking Status: Tobacco use Status Tobacco use date assessed 12/19/23 06/03/24 13:50 Patient Tobacco Use Status Former Tobacco user 06/03/24 13:50 e-Cigarette/Vaping Use Never Used 06/03/24 13:50 Thrive Assessment: Date of Thrive Assessment Date Thrive assessed 10/24/23 06/03/24 13:50 Telehealth Telehealth Telehealth Platform: Telephone Location of provider rendering services: practice address Location of patient: address on file Patient Identification confirmed using: Name, : Yes Telehealth method: voice only Patient verbally consented to treatment: Yes Patient verbally consented to billing insurance company: Yes Patient informed of any privacy concerns related to visit: Yes Minutes spent on Phone/Video with Pt.: 5 Coding Level of Care Code Tele Est Pt Level 2 (87739) Diagnoses Hypothyroidism (acquired) E03.9 Elevated AST (SGOT) R74.01 Assessment & Plan Assessment & Plan (1) Hypothyroidism (acquired): Code(s): E03.9 - Hypothyroidism, unspecified Category: Medical Plan: Thyroid?hormone?levels?are?all?within?normal?range Continue?levothyroxine?as?prescribed (2) Elevated AST (SGOT): Code(s): R74.01 - Elevation of levels of liver transaminase levels Category: Medical Plan: Borderline?elevation?in?AST Encouraged?good?hydration?and?some?weight?loss Will?recheck?again?in?a?few?months Orders: Orders Comprehensive Met. Panel Today R74.01 - Elevation of levels of liver transaminase levels Vitamin D 25-OH Total Today E55.9 - Vitamin D deficiency, unspecified, M85.80 - Other specified disorders of bone density and structure, unspecified site
== END ==
LOC: HO.HMCFM 13:51
PROVIDERS: PCP Family Medicine; Visit Provider Family Medicine
DX: E03.9 Hypothyroidism, unspecified (principal); R74.01 Elevation of levels of liver transaminase levels

== ENCOUNTER 2024-12-16 10:14 | Outpatient (REF) | payer MEDICARE, SELFPAY ==
[2024-12-16 12:04] LABS: Alanine Aminotransferase 23 U/L (0-31); Albumin Level 4.4 g/dL (3.5-5.0); Alkaline Phosphatase 63 U/L (39-117); Anion Gap 10 (12-20); Aspartate Amino Transferase 29 U/L (5-31); Bilirubin Total 1.1 mg/dL (0.0-1.0); Blood Urea Nitrogen 20 mg/dL (9-16); Carbon Dioxide 27 mmol/L (22-29); Chloride 109 mmol/L (96-108); Estimated Glomerular Filt Rate > 60; Glucose Random 95 mg/dL (60-115); Potassium 4.1 mmol/L (3.3-5.1); Sodium 142 mmol/L (135-145); Total Protein 6.6 g/dL (6.5-8.0)
[2024-12-16 12:18] LABS: Vitamin D 25-OH Total 49.2 ng/mL (>30)
== END 2024-12-16 10:15 | disposition home or self-care (01) ==
LOC: HO.WFDLDS 10:14
PROVIDERS: Visit Provider Family Medicine
DX: R74.01 Elevation of levels of liver transaminase levels (principal); M85.80 Other specified disorders of bone density and structure, unspecified site; E55.9 Vitamin D deficiency, unspecified
CPT/HCPCS: 36415; 80053; 82306

== ENCOUNTER 2024-12-26 13:59 | Outpatient (AMB) | payer MEDICARE, SELFPAY ==
--- NOTE | 2024-12-26 14:06 | A.OFFPC_ITS ---
Vital Signs 12/26/24 14:28 Height 5 ft 5.75 in Weight 152 lb 4 oz BMI 24.8 BP 90/60 Blood Pressure Location Rt brachial Position Sitting Respiration 12 Pulse 70 Pulse Source Pulse Oximeter Temp 98.0 F Temp Source Oral Pulse Oximetry (%) 95 Oxygen Delivery Method Room Air Intake Visit Reasons: f/u elevated liver enzymes Intake Note: patient is scheduled for lab review Stationary Plant Operators Required: No Allergies Penicillins Allergy (Mild, Verified 12/26/24 14:28) RASH Sulfa (Sulfonamide Antibiotics) Allergy (Mild, Verified 12/26/24 14:28) RASH/SWELLING PLASTIC TAPE Allergy (Unknown, Uncoded 12/19/23 08:39) UNKNOWN Tobacco use date assessed: 12/19/23 Dental Screening Dental Screen Date: 10/24/23 HPI f/u elevated liver enzymes HPI Details 69 y/o female presents to f/u elevated l iver enzymes. Labs drawn 12/16/24. Reviewed labs with pt. Liver enzymes improved - AST 29, ALT 23. Blood pressure running a bit low at 90/60, 70p today. Pt notes she has been taking aleve 5x a week to help with relief for some knee/L hip pain. HPI Comments History of Present Illness Details Documentation assistance for Tk Tatum MD, was provided by Hima Rosario,? Paraprofessional Aide Teacher on 12/26/2024 at 3:09 PM EST. I, Dr. Tatum, have read, observed, and verified documentation. ?? [facility] Medical History High cholesterol Hypothyroidism (acquired) Surgical History History of rectal surgery Family History (Updated 12/19/23 @ 08:41 by Evelyn Lopez CMA) Father No problems noted. Mother No problems noted. Social History Household Members: None Housing: House Alcohol intake: current Alcohol intake frequency: holidays/special occasions only Patient Tobacco Use Status: Former Tobacco user Cigarette Packs Per Day: 1 Cigarettes Per Day: 20 Years Smoked: 20 e-Cigarette/Vaping Use: Never Used Second Hand Smoke Exposure: No service: No Current occupational status: employed Current occupation: teacher Sexual orientation: Unable to collect Gender identity: Unable to collect Cognitive needs: No Hearing needs: Yes (hearing in left ear) Vision needs: Yes (wears glasses) Questionnaire PHQ-9 Over the last 2 weeks, how often have you been bothered by any of the following problems? 1. Little interest or pleasure in doing things: not at all 2. Feeling down, depressed, or hopeless: not at all 3. Trouble falling or staying asleep, or sleeping too much: not at all 4. Feeling tired or having little energy: not at all 5. Poor appetite or overeating: not at all 6. Feeling bad about yourself - or that you are a failure or have let yourself or your family down: not at all 7. Trouble concentrating on things, such as reading the newspaper or watching television: not at all 8. Moving or speaking so slowly that other people could have noticed. Or the opposite - being so fidgety or restless that you have been moving around a lot more than usual: not at all 9. Thoughts that you would be better off or of hurting yourself in some way: not at all Total score: 0 Source: Developed by Drs. Ashok Chen, Jennifer Haas, Khoi Juarez and colleagues, with an educational mia from [employer]. Thrive Questionnaire Date Thrive assessed: 10/24/23 I am a: Patient What is your living situation today?: I have a steady place to live Within the past 12 months, did the food you bought not last and you didn't have the money to get more?: Never true Within the past 12 months, did you worry whether your food would run out before you got money to buy more?: Never true Do you have trouble paying for medicines?: No Do you have trouble getting transportation to medical appointments?: No Do you have trouble paying your heating and electricity bill?: No Do you have trouble taking care of your child, family member or friend?: No Do you have trouble with day-to-day activities such as bathing, preparing meals, shopping, managing finances, etc.?: No Are you currently unemployed and looking for a job?: No Are you interested in more education?: Yes Please select the resources that you would like help with: None Currently or been in a relationship where the following occur: No concerns reported THRIVE Score: 0 AUDIT C Alcohol Use Questionnaire (AUDIT-C) 1. How often do you have a drink containing alcohol?: Monthly or less 2. How many drinks containing alcohol do you have on a typical day when you are drinking?: 1 or 2 3. How often do you have six or more drinks on one occasion?: Never Total Score: 1 BEBA-7 AMB Questionnaire BEBA-7 Date BEBA - 7 assessed: 10/24/23 Feeling nervous, anxious, or on edge: 0 = Not at all Not being able to stop or control worryin = Not at all Worrying too much about different things: 0 = Not at all Trouble relaxin = Not at all Being so restless that it is hard to sit still: 0 = Not at all Becoming easily annoyed or irritable: 0 = Not at all Feeling afraid as if something awful might happen: 0 = Not at all Total BEBA-7 score (0-4 normal; 5-9 mild; 10-14 moderate; 15-21 severe): 0 Source: Developed by Drs. Ashok Chen, Jennifer Haas, Khoi Juarez and colleagues, with an educational mia from [employer]. Review of Systems Const Denies chills, Denies fatigue, Denies fever(s), Denies headache(s) and Denies weakness ENT Denies dizziness and Denies headache(s) Card Denies dyspnea Resp Denies cough, Denies dyspnea, Denies wheezing and Denies other (shortness of breath) Musc Details: L hip pain Denies numbness and Denies tingling Neuro Denies dizziness, Denies headache(s), Denies numbness, Denies tingling and Denies weakness Psych Denies anxiety and Denies depression Endo Denies fatigue Aller/Immun Denies wheezing Physical exam (Primary Care) Vital Signs: Last Vital Signs Temp 98.0 F 12/26/24 14:28 Pulse 70 12/26/24 14:28 Resp 12 12/26/24 14:28 BP 90/60 12/26/24 14:28 Pulse Ox 95 12/26/24 14:28 Oxygen Delivery Method Room Air 12/26/24 14:28 BMI result Body Mass Index 24.8 Tobacco/Smoking Status: Tobacco use Status Tobacco use date assessed 12/19/23 12/26/24 14:07 Patient Tobacco Use Status Former Tobacco user 12/26/24 14:07 e-Cigarette/Vaping Use Never Used 12/26/24 14:07 PHQ-9: PHQ-9 Score PHQ-9: Total score 0 12/26/24 15:03 Thrive Assessment: Date of Thrive Assessment Date Thrive assessed 10/24/23 12/26/24 14:07 Currently or been in a relationship where the following occur: No concerns reported Const General: well developed; No acute distress Nutritional Appearance: well nourished Orientation/consciousness: patient oriented x3 HENMT Head: Yes normocephalic and Yes atraumatic Eyes General: appearance normal, both eyes and all related structures Pupils: Equal, round and reactive pupils present EOM: EOMs intact bilaterally Resp Effort & Inspection: normal respiratory effort Auscultation: clear to auscultation bilaterally Cardio Rate: regular rate Rhythm: regular rhythm Heart sounds: S1 normal heart sound present, S2 normal heart sound present, no gallops, no murmurs and no rubs Neuro General: patient oriented x3 and gait normal Cranial nerves: Yes Equal, round and reactive pupils present Psych Affect: normal affect Coding Level of Care Code Est Pt Level 4 (32458) Diagnoses Elevated AST (SGOT) R74.01 Hip pain M25.559 Hand pain M79.643 Mild dehydration E86.0 Hypothyroidism (acquired) E03.9 Assessment & Plan Assessment & Plan (1) Elevated AST (SGOT): Code(s): R74.01 - Elevation of levels of liver transaminase levels Category: Medical Plan: Liver?enzymes?are?back?in?normal?range?after?weight?loss Will?continue?to?monitor?periodically Also?encouraged?good?hydration (2) Hip pain: Code(s): M25.559 - Pain in unspecified hip Category: Medical Plan: Left?lateral?hip?pain?and?pain?when?she?is?lying?side Also?some?discomfort?when?walking?which?causes?mild?unsteadiness No?significant?unsteadiness?or?risk?for?falls Physical?therapy?ordered He?can?continue?Beata (3) Hand pain: Code(s): M79.643 - Pain in unspecified hand Category: Medical Plan: Bilateral?hand?pain.??Likely?mild?osteoarthritis Is?is well?controlled?with?a?l eave?and?patient?inquires?whether?she?should?use?this She?has?no?problems?with?his?medication?is?only?taking?of?220?mg?day She?can?continue?to?do?so May?also?want?to?use?ice?or?heat?and?she?can?also?u se?topicals?such?as?Aspercreme Hydrate?well?when?using?Aleve She?will?let?me?know?if?worsening (4) Mild dehydration: Code(s): E86.0 - Dehydration Category: Medical Plan: Appears?mildly?dry?on?lab?work?in on?examination?today Also?blood?pressure?is?a?little?low Encouraged?increased?hydration (5) Hypothyroidism (acquired): Code(s): E03.9 - Hypothyroidism, unspecified Category: Medical Plan: Patient?will?be?due?to?follow-up?on?hypothyroidism?at?next?visit. She?is?taking?levothyroxine?75?mcg?daily?and?tolerating?this Orders: Orders PT Evaluation and Treatment Today M25.559 - Pain in unspecified hip Comprehensive Met. Panel Today E03.9 - Hypothyroidism, unspecified Free T4 (Free Thyroxine) Today E03.9 - Hypothyroidism, unspecified Triiodothyronine T3 Total Today E03.9 - Hypothyroidism, unspecified TSH reflex Free T4 Today E03.9 - Hypothyroidism, unspecified, Z00.00 - Enc ounter for general adult medical examination without abnormal findings
[2024-12-26 14:28] VITALS: BP 90/60; PULSE 70; RESP 12; TEMP 36.7; O2SAT 95; BMI 24.8
--- OUTSIDE RECORDS SUMMARY | 2024-12-26 16:53 | XMS_ITS | Patient Health Record ---
Author Organization [facility] Address [address] [place] [id number] Care Team Providers Care Lead Caster Name Role Phone Glenn Bae Jr Reason For Referral No Information Plan Of Treatment No Information
== END 2024-12-26 15:14 | disposition home or self-care (01) ==
LOC: HO.HMCFM 14:00
PROVIDERS: PCP Family Medicine; Visit Provider Family Medicine
DX: R74.01 Elevation of levels of liver transaminase levels (principal); M25.559 Pain in unspecified hip; M79.643 Pain in unspecified hand; E86.0 Dehydration; E03.9 Hypothyroidism, unspecified

== ENCOUNTER → 2024-12-26 13:59 | Outpatient (BNVA) | payer MEDICARE, SELFPAY | PROVIDERS: PCP Family Medicine; Visit Provider Family Medicine | DX: R74.01 Elevation of levels of liver transaminase levels (principal); E86.0 Dehydration; E03.9 Hypothyroidism, unspecified; M79.641 Pain in right hand; M79.642 Pain in left hand; M25.552 Pain in left hip | CPT/HCPCS: 96127; 99212 ==

== ENCOUNTER 2025-03-27 15:13 | Outpatient (REF) | payer MEDICARE, SELFPAY ==
[2025-03-27 16:39] LABS: Alanine Aminotransferase 18 U/L (0-31); Albumin Level 4.4 g/dL (3.5-5.0); Alkaline Phosphatase 93 U/L (39-117); Anion Gap 11 (12-20); Aspartate Amino Transferase 27 U/L (5-31); Blood Urea Nitrogen 19 mg/dL (9-16); Calcium 9.1 mg/dL (8.4-10.2); Carbon Dioxide 28 mmol/L (22-29); Chloride 109 mmol/L (96-108); Estimated Glomerular Filt Rate > 60; Potassium 4.2 mmol/L (3.3-5.1); Sodium 144 mmol/L (135-145); Total Protein 6.7 g/dL (6.5-8.0)
[2025-03-27 16:51] LABS: Free T4 (Free Thyroxine) 1.17 ng/dL (0.71-1.85)
--- OUTSIDE RECORDS SUMMARY | 2025-03-27 19:26 | XMS_ITS | Patient Health Record ---
Author Organization [facility] Address [address] [place] [id number] Care Team Providers Care Invoice Control Clerk Name Role Phone Glenn Bae Jr Reason For Referral No Information Plan Of Treatment No Information
== END 2025-03-27 15:14 | disposition home or self-care (01) ==
LOC: HO.LAB 15:13
PROVIDERS: PCP Family Medicine; Visit Provider Family Medicine
DX: Z00.00 Encounter for general adult medical examination without abnormal findings (principal); E03.9 Hypothyroidism, unspecified
CPT/HCPCS: 36415; 80053; 84439; 84443; 84480

== ENCOUNTER 2025-04-02 16:15 | Outpatient (AMB) | payer MEDICARE, SELFPAY ==
--- NOTE | 2025-04-02 16:01 | MHC.PC.OV ---
Intake Visit Reasons: f/u hypothyroidism via telemed Intake Note: patient here for Telehealth follow up for hypothyroidism [employer] Required: No Is last menstrual period known: No Post menopausal: No Patient : No Allergies Penicillins Allergy (Mild, Verified 04/02/25 16:02) RASH Sulfa (Sulfonamide Antibiotics) Allergy (Mild, Verified 04/02/25 16:02) RASH/SWELLING PLASTIC TAPE Allergy (Unknown, Uncoded 12/19/23 08:39) UNKNOWN Medication List - Last Reconciled 04/02/25 by Tk Tatum MD levothyroxine 75 mcg PO DAILY 90 days pravastatin 20 mg PO BEDTIME Tobacco use date assessed: 04/02/25 Fall risk assessment: No Falls in past year Last assessed Fall Risk: 04/02/25 Dental Screening Dental Screen Date: 04/02/25 Did you have a dental visit in the last 12 months?: Yes Did you have a dental problem in the last 6 months where you did not have access to dental care?: No Was dental information given to patient?: Patient has dentist HPI f/u hypothyroidism via telemed HPI Details 69 y/o female presents to f/u labs via telemed. Labs drawn 03/27/25. Reviewed labs with pt. TSH 1.59 uIU/mL. Free T4 1.17 ng/dL. Total T3 65 ng/dL. She is on levothyroxine 75 mcg daily. [facility] Medical History High cholesterol Hypothyroidism (acquired) Surgical History History of rectal surgery Family History (Updated 12/19/23 @ 08:41 by Evelyn Lopez CMA) Father No problems noted. Mother No problems noted. Social History Household Members: None Housing: House Alcohol intake: current Alcohol intake frequency: holidays/special occasions only Patient Tobacco Use Status: Former Tobacco user Cigarette Packs Per Day: 1 Cigarettes Per Day: 20 Years Smoked: 20 Packs Per Year: 20 Packs per year/per ci.00 e-Cigarette/Vaping Use: Never Used Second Hand Smoke Exposure: No Patient : No service: No Current occupational status: employed Current occupation: teacher Sexual orientation: Unable to collect Gender identity: Unable to collect Cognitive needs: No Hearing needs: Yes (hearing in left ear) Vision needs: Yes (wears glasses) Questionnaire Thrive Questionnaire Date Thrive assessed: 10/24/23 I am a: Patient What is your living situation today?: I have a steady place to live Within the past 12 months, did the food you bought not last and you didn't have the money to get more?: Never true Within the past 12 months, did you worry whether your food would run out before you got money to buy more?: Never true Do you have trouble paying for medicines?: No Do you have trouble getting transportation to medical appointments?: No Do you have trouble paying your heating and electricity bill?: No Do you have trouble taking care of your child, family member or friend?: No Do you have trouble with day-to-day activities such as bathing, preparing meals, shopping, managing finances, etc.?: No Are you currently unemployed and looking for a job?: No Are you interested in more education?: Yes Please select the resources that you would like help with: None Currently or been in a relationship where the following occur: No concerns reported THRIVE Score: 0 BEBA-7 AMB Questionnaire BEBA-7 Date BEBA - 7 assessed: 10/24/23 Source: Developed by Drs. Ashok Chen, Jennifer Haas, Khoi Juarez and colleagues, with an educational mia from [employer]. Review of Systems Const Denies chills, Denies fatigue, Denies fever(s), Denies headache(s) and Denies weakness ENT Denies dizziness and Denies headache(s) Card Denies dyspnea Resp Denies cough, Denies dyspnea, Denies wheezing and Denies other (shortness of breath) Musc Denies numbness and Denies tingling Neuro Denies dizziness, Denies headache(s), Denies numbness, Denies tingling and Denies weakness Psych Denies anxiety and Denies depression Endo Denies fatigue Aller/Immun Denies wheezing Physical exam (Primary Care) Tobacco/Smoking Status: Tobacco use Status Tobacco use date assessed 04/02/25 04/02/25 16:04 Patient Tobacco Use Status Former Tobacco user 04/02/25 16:04 e-Cigarette/Vaping Use Never Used 04/02/25 16:04 Thrive Assessment: Date of Thrive Assessment Date Thrive assessed 10/24/23 04/02/25 16:04 Currently or been in a relationship where the following occur: No concerns reported Telehealth Telehealth Telehealth Platform: Telephone Location of provider rendering services: practice address Location of patient: address on file Patient Identification confirmed using: Name, : Yes Telehealth method: voice only Patient verbally consented to treatment: Yes Patient verbally consented to billing insurance company: Yes Patient informed of any privacy concerns related to visit: Yes Minutes spent on Phone/Video with Pt.: 5 Coding Level of Care Code Tele Est Pt Level 2 (56340) Diagnoses Hypothyroidism (acquired) E03.9 Assessment & Plan Assessment & Plan (1) Hypothyroidism (acquired): Code(s): E03.9 - Hypothyroidism, unspecified Category: Medical Plan: Tsh And Free T4 are wnl. T3 slightly low. No changes to her medication today. Will recheck with her next lab draw Orders: Orders Lipid Panel Today Z00.00 - Encounter for general adult medical examination without abnormal findings Free T4 (Free Thyroxine) Today E03.9 - Hypothyroidism, unspecified Thyroid Stimulating Hormone Today E03.9 - Hypothyroidism, unspecified Comprehensive [place]. Panel Fast Today Z00.00 - Encounter for general adult medical examination without abnormal findings Complete Blood Count Auto Diff Today Z00.00 - Encounter for general adult medical examination without abnormal findings Microalbumin, Random (w Creat) Today I10 - Essential (primary) hypertension UA CC w/rflx Micro + Cult Today Z00.00 - Encounter for general adult medical examination without abnormal findings Triiodothyronine T3 Total Today E03.9 - Hypothyroidism, unspecified Vitamin D 25-OH Total Today E55.9 - Vitamin D deficiency, unspecified
== END 2025-04-02 17:05 | disposition home or self-care (01) ==
LOC: HO.HMCFM 16:15
PROVIDERS: PCP Family Medicine; Visit Provider Family Medicine
DX: E03.9 Hypothyroidism, unspecified (principal)